=== PATIENT | female | born 1965 | race Caucasian/White ===

== ENCOUNTER → 2017-06-28 | Outpatient (CLI) | payer OTHER, BC ==
[~2017-06-28] MED LIST: CALC625T13 PO; DENIES
== END | disposition home or self-care (01) ==
LOC: CFH 09:33
PROVIDERS: ATTEND Surgery
DX: E04.2 Nontoxic multinodular goiter (principal); E78.00 Pure hypercholesterolemia, unspecified
CPT/HCPCS: 76536

== ENCOUNTER → 2017-07-08 | Outpatient (CLI) | payer BC, OTHER ==
[~2017-07-08] MED LIST changes: +CHOL100011 PO; +KRIL1CAP22 PO; +LACT1CAP35 PO; +LEVO50TA64 PO; +MULT-658 PO
== END ==
LOC: STAR 11:01
PROVIDERS: ATTEND Orthopaedic Surgery
DX: Z02.9 Encounter for administrative examinations, unspecified (principal)

== ENCOUNTER 2017-07-19 06:13 | Day surgery (SDC) | payer BC ==
[2017-07-08 11:25] VITALS: BP 102/69
[~2017-07-19] VITALS: Ht 170.2 cm; Wt 61.7 kg
[2017-07-19] MEDS ORDERED: BUPIVACAINE/PF 0.5% ONE (06:46)
[2017-07-19] MEDS ORDERED: LIDOCAINE 1%, 50ML ONE (06:46)
[2017-07-19] MEDS ORDERED: LACTATED RINGERS 1,000 ML IV SCH (06:48)
[2017-07-19] MEDS ORDERED: LIDOCAINE 1%, 2ML SQ PRN (07:00)
[2017-07-19] MEDS ORDERED: FENTANYL PF 100 MCG/2ML ONE ×3 (07:20→07:55)
[2017-07-19] MEDS ORDERED: MIDAZOLAM 1 MG/ML, 2ML ONE ×2 (07:20→07:55)
[2017-07-19] MEDS ORDERED: PROPOFOL 10 MG/ML, 20ML ONE ×2 (07:22→07:55)
[2017-07-19] MEDS ORDERED: CEFAZOLIN 1,000 MG ONE ×3 (07:24→07:55)
[2017-07-19] MEDS ORDERED: SODIUM CHLORIDE 0.9% PF 10ML ONE (07:24)
[2017-07-19] MEDS ORDERED: DEXAMETHASONE 4 MG/ML, 1ML ONE ×3 (07:24→07:55)
[2017-07-19] MEDS ORDERED: ONDANSETRON 2MG/ML, 2ML ONE ×3 (07:24→07:55)
[2017-07-19] MEDS ORDERED: hydrALAzine 20 MG/ML, 1ML IV PRN (08:00)
[2017-07-19] MEDS ORDERED: ACETAMINOPHEN 325 MG TABLET PO PRN (08:00)
[2017-07-19] MEDS ORDERED: ONDANSETRON 2MG/ML, 2ML IVPush PRN (08:00)
[2017-07-19] MEDS ORDERED: LABETALOL 5MG/ML, 20ML IV PRN (08:00)
[2017-07-19] MEDS ORDERED: FENTANYL PF 100 MCG/2ML IV PRN (08:00)
[2017-07-19] MEDS ORDERED: MEPERIDINE/PF 25MG/0.5ML IVPush PRN (08:00)
[2017-07-19] MEDS ORDERED: PROMETHAZINE 25 MG/ML, 1ML IV PRN (08:00)
[2017-07-19] MEDS ORDERED: OXYcodone 5 MG/5 ML ORAL.SOL UDC PO PRN (08:00)
[2017-07-19] MEDS ORDERED: HYDROmorphone 1 MG/ML, 1ML IV PRN (08:00)
[2017-07-19] MEDS ORDERED: BUPIVACAINE/PF 0.5% INFIL ONE (08:25)
[2017-07-19] MEDS ORDERED: ACETAMINOPHEN 325 MG TABLET ONE (08:49)
[2017-07-19] MEDS ORDERED: OXYcodone 5 MG/5 ML ORAL.SOL UDC ONE (08:49)
[2017-07-19] MEDS ORDERED: ACETAMINOPHEN 650 MG/20.3 ML UDC ONE (08:49)
== END 2017-07-19 10:05 ==
LOC: OUT 06:13
PROVIDERS: ATTEND Orthopaedic Surgery
DX: M67.432 Ganglion, left wrist (principal); M65.4 Radial styloid tenosynovitis [de Quervain]; E03.9 Hypothyroidism, unspecified; Z88.0 Allergy status to penicillin
CPT/HCPCS: 25000; 25111; J0690; J1100; J2250; J2405; J2704; J3010; J3490; J7120